=== PATIENT | male | born 1960 | race Caucasian/White ===

== ENCOUNTER 2017-03-24 19:56 | Emergency (ER) | payer OTHER ==
[~2017-03-24] VITALS: Ht 182.9 cm; Wt 104.3 kg
[~2017-03-24 19:56] MED LIST: ACCUPRIL10 MG ORAL; ADVAIR 250-501 EACH INH; NOVOLIN 70/305 UNIT1 SUBQ
[2017-03-24 19:58] VITALS: BP 145/79
--- NOTE | 2017-03-24 20:18 | Emergency Room Report ---
History of Present Illness General Chief Complaint: Chest Pain Source: Patient Present Illness HPI 56YOM [place] after civilian called EMS On scene patient c/o SOB/chest pain for 3 days States he has "had PNA a couple of times." Denies fever/chills, cough has obvious ascites of abdomen, states he has liver failure from Hep C Never had [facility] Denies recent increase in abd size/girth, abd pain, nausea/vomiting, diarrhea, fever/chills Allergies: Coded Allergies: CODEINE (Unverified Allergy, Intermediate, rash, 09/27/12) Patient History Past Medical History: other - see HPI Past Surgical History: none Pertinent Family History: none Social History: Denies: smoking, alcohol use, drug use Immunizations: UTD Reviewed Nursing Documentation: PMH: Agreed, PSxH: Agreed Nursing Documentation-PMH Hx Cardiac Problems: Yes - chf Hx Hypertension: Yes Hx COPD: Yes Hx Diabetes: Yes Hx Gastrointestinal Problems: Yes - ENS STAGE LIVER DISEASE Review of Systems All Other Systems: negative except mentioned in HPI Physical Exam Vital Signs Date Time Temp Pulse Resp B/P (MAP) Pulse Ox O2 Delivery O2 Flow Rate FiO2 03/24/17 19:49 98.8 94 18 141/78 97 Room Air Medical Decision Making Diagnostic Impression: Primary Impression: Ascites Qualified Codes: R18.8 - Other ascites Additional Impression: Chest pain Qualified Codes: R07.9 - Chest pain, unspecified ER Course Ascites, chronic umbilical reducible hernia. Non-tender abdomen. No fever/ chills. Unlikely SBP. No leuks. Chest pain/SOB ECG with NSR, no ischemia. Troponin 0. CXR negative for PNA, CHF patient homeless, multiple belongings with him Sleeping in stretcher entire ED stay Asking for food No acute distress ?malingering DC EKG Diagnostic Results Rate: normal Rhythm: NSR ST Segments: no acute changes ASA given to the pt in ED: No Rhythm Strip Diag. Results EP Interpretation: yes Rate: 92 Rhythm: NSR Last Vital Signs Date Time Temp Pulse Resp B/P (MAP) Pulse Ox O2 Delivery O2 Flow Rate FiO2 03/24/17 19:49 98.8 94 18 141/78 97 Room Air Status: improved Disposition: HOME, SELF-CARE JONAS MACIAS M.D. Mar 24, 2017 20:18
[2017-03-24 20:32] LABS: MEAN CORPUSCULAR HEMOGLOBIN 33.9 PG (27.0-31.0); MEAN CORPUSCULAR HGB CONC 34.7 G/DL (32.0-36.0); MEAN CORPUSCULAR VOLUME 98 FL (80-99); MEAN PLATELET VOLUME 6.7 FL (6.5-10.1); PLATELET COUNT 87 K/UL (150-450); RED BLOOD COUNT 3.04 M/UL (4.70-6.10); RED CELL DISTRIBUTION WIDTH 14.2 % (11.6-14.8); WHITE BLOOD COUNT 6.1 K/UL (4.8-10.8)
[2017-03-24 20:51] LABS: EOSINOPHILS % (AUTO) 2.4 % (0.0-3.0); LYMPHOCYTES % (AUTO) 17.1 % (20.0-45.0); MONOCYTES % (AUTO) 8.5 % (1.0-10.0); NEUTROPHILS % (AUTO) 70.5 % (45.0-75.0)
[2017-03-24 20:52] LABS: BASOPHILS % (AUTO) 1.6 % (0.0-2.0)
[2017-03-24 21:11] LABS: TROPONIN I < 0.30 ng/mL (<=0.30)
[2017-03-24 21:12] LABS: ALANINE AMINOTRANSFERASE 18 U/L (3-41); ALBUMIN/GLOBULIN RATIO 0.5 (1.0-2.7); ANION GAP 8 (5-15); ASPARTATE AMINO TRANSFERASE 34 U/L (5-40); CARBON DIOXIDE 26 mEQ/L (20-30); CHLORIDE 104 mEQ/L (98-107); CREATININE 0.8 mg/dL (0.7-1.2); GLOMERULAR FILTRATION RATE > 60 mL/min (>60); HEMOLYSIS 3; LIPASE 28 U/L (< 60); POTASSIUM 3.8 mEQ/L (3.4-4.9); SODIUM 138 mEQ/L (135-145); TOTAL PROTEIN 6.7 g/dL (6.6-8.7)
[2017-03-24 21:22] LABS: CKMB 2.7 ng/mL (< 6.7)
[2017-03-24 21:33] LABS: BILIRUBIN,DIRECT 0.7 mg/dL (0.1-0.3)
[2017-03-24 22:04] LABS: APPEARANCE,URINE CLEAR; KETONES,URINE NEGATIVE (NEGATIVE); LEUKOCYTE ESTERASE ,URINE NEGATIVE (NEGATIVE); NITRITE,URINE NEGATIVE (NEGATIVE); PH,URINE 7 (4.5-8.0); PROTEIN,URINE 2+ (NEGATIVE); UROBILINOGEN,URINE 8 MG/DL (0.0-1.0)
[2017-03-24 22:18] VITALS: BP 139/83
[2017-03-24 22:18] LABS: SQUAMOUS EPITHELIAL CELL,UR OCCASIONAL /LPF (NONE/OCC); WBC,URINE 0 /HPF (0 - 0)
[2017-03-24 22:45] VITALS: BP 139/83
--- NOTE | 2017-03-25 09:04 | Diagnostic Imaging Report ---
Indication: Chest pain Technique: XRAY CHEST 1 V Comparison:10/16/2011 Findings: The heart is upper limits of normal size. Prominent interstitial markings are noted. Pulmonary vascularity is also slightly prominent. There is bronchial wall thickening. No alveolar infiltrates. No pleural fluid. Impression: Mild prominence of interstitial markings. Is also bronchial wall thickening. Possibility of fluid overload or mild congestive heart failure should be considered.
--- NOTE | 2017-03-27 18:44 | Cardiology Report ---
APPROVED REPORT EKG Measurement Heart [id number] Sinus rhythm with premature supraventricular complexes Rightward axis Cannot rule out Anterior infarct, age undetermined T wave abnormality, consider inferior ischemia Abnormal ECG
== END 2017-03-24 22:45 | disposition home or self-care (01) ==
LOC: EDBD 19:56 → EMR 20:30
DX: R07.9 Chest pain, unspecified (principal); R06.02 Shortness of breath; I50.9 Heart failure, unspecified; I10 Essential (primary) hypertension; E11.9 Type 2 diabetes mellitus without complications; J44.9 Chronic obstructive pulmonary disease, unspecified; K72.90 Hepatic failure, unspecified without coma; Z88.6 Allergy status to analgesic agent
CPT/HCPCS: 36415; 71010; 80053; 81003; 82248; 82550; 82553; 83690; 84484; 85025; 93005; 99283

== ENCOUNTER 2017-04-10 15:57 | Emergency (ER) | payer OTHER ==
[~2017-04-10] VITALS: Ht 182.9 cm; Wt 7.3 kg
--- NOTE | 2017-04-10 17:07 | Emergency Room Report ---
History of Present Illness General Chief Complaint: Nausea Source: Patient Present Illness HPI 56YOM [address] with nausea. Feels better after 1x episode of vomiting Denies abd pain, chest pain, SOB, fevers Denies worsening size of ascites Homeless Was seen here 2 weeks prior as well - labs were done. No leuks. Stable H&H. Elevated LFTs likely d/t known cirrhosis patient states continues to drink, including today Otherwise not contributing much to HPI, seems more interested in sleeping Allergies: Coded Allergies: CODEINE (Unverified Allergy, Intermediate, rash, 09/27/12) Patient History Past Medical History: other - Ascites Past Surgical History: none Pertinent Family History: none Social History: Reports: alcohol use, Denies: smoking, drug use Immunizations: UTD Reviewed Nursing Documentation: PMH: Agreed, PSxH: Agreed Nursing Documentation-PMH Hx Cardiac Problems: Yes - chf Hx Hypertension: Yes Hx COPD: Yes Hx Diabetes: Yes Hx Gastrointestinal Problems: Yes - ENS STAGE LIVER DISEASE Review of Systems All Other Systems: negative except mentioned in HPI Physical Exam Vital Signs Date Time Temp Pulse Resp B/P (MAP) Pulse Ox O2 Delivery O2 Flow Rate FiO2 04/10/17 15:49 97.2 82 16 152/ 98 Sp02 EP Interpretation: reviewed, normal General Appearance: normal inspection, well appearing, no apparent distress, alert, GCS 15, non-toxic, other - +AOB, disheveled Head: normocephalic, atraumatic Eyes: bilateral eye PERRL, bilateral eye EOMI ENT: normal ENT inspection, hearing grossly normal, normal voice Neck: normal inspection, full range of motion, supple, no bony tend Respiratory: normal inspection, lungs clear, normal breath sounds, no respiratory distress, no retraction, no wheezing Cardiovascular #1: regular rate, rhythm, no edema Gastrointestinal: normal inspection, normal bowel sounds, non tender, soft, no guarding, no hernia, other - Enlarged abdomen/ascites. Non-distended. Non- tender. Reducible umbilical hernia Genitourinary: no CVA tenderness Musculoskeletal: normal inspection, back normal, normal range of motion, Yusef' s Sign negative Neurologic: normal inspection, alert, oriented x3, responsive, program director/air personality III-XII nml as tested, motor strength/tone normal, speech normal Psychiatric: normal inspection, judgement/insight normal, mood/affect normal Skin: normal inspection, normal color, no rash Lymphatic: normal inspection Medical Decision Making Diagnostic Impression: Primary Impression: Umbilical hernia without obstruction or gangrene Additional Impressions: Ascites Qualified Codes: K70.31 - Alcoholic cirrhosis of liver with ascites Nausea ER Course VSS. Afebrile Homeless Stable ascites. Reducible hernia. Was given PO zofran for nausea Tolerating PO in ED Sleeping throughout ED stay DC Last Vital Signs Date Time Temp Pulse Resp B/P (MAP) Pulse Ox O2 Delivery O2 Flow Rate FiO2 04/10/17 15:49 97.2 82 16 152/ 98 Status: improved Disposition: HOME, SELF-CARE JONAS MACIAS M.D. Apr 10, 2017 17:07
[2017-04-10 17:50] VITALS: BP 155/88
== END 2017-04-10 17:57 | disposition home or self-care (01) ==
LOC: EDBD 15:57 → EMR 17:49
DX: K42.9 Umbilical hernia without obstruction or gangrene (principal); R18.8 Other ascites; R11.0 Nausea; E11.9 Type 2 diabetes mellitus without complications; J44.9 Chronic obstructive pulmonary disease, unspecified; Z88.6 Allergy status to analgesic agent
CPT/HCPCS: 99283

== ENCOUNTER 2017-09-26 16:20 | Emergency (ER) | payer OTHER ==
[~2017-09-26] VITALS: Ht 182.9 cm; Wt 113.4 kg
[2017-09-26 16:24] VITALS: BP 136/86
[2017-09-26] MEDS ORDERED: Ketorolac 30mg Inj IM ONE (17:00)
[2017-09-26] MEDS ORDERED: PROMETHAZI6.25 MG/1 ORAL (17:45)
[2017-09-26] MEDS ORDERED: PREDNISONE20 MG ORAL (17:45)
[2017-09-26] MEDS ORDERED: AMOXICILLIN500 MG ORAL (17:45)
[2017-09-26] MEDS ORDERED: ALBUTEROL SULF8.5 GM INH (17:45)
[2017-09-26 17:55] VITALS: BP 135/80
--- NOTE | 2017-09-26 20:51 | Emergency Room Report ---
History of Present Illness General Chief Complaint: General Complaint Source: Patient, EMS Present Illness HPI 56-year-old male presents ED for evaluation. Patient brought in by EMS complaining of cough with bloody sputum 1 week. Denies chest pain or shortness of breath. Upon arrival patient screaming and yelling. States that he does not want to be brought to [place]. Patient also complaining of abdominal pain. States he has history of hernia. Denies nausea or vomiting. States he is hungry and wants to eat. No other aggravating or relieving factors. Denies any other associated symptoms Allergies: Coded Allergies: CODEINE (Unverified Allergy, Intermediate, rash, 09/27/12) Patient History Past Medical History: DM, HTN, CHF, COPD Pertinent Family History: none Social History: Denies: smoking, alcohol use, drug use Immunizations: UTD Reviewed Nursing Documentation: PMH: Agreed, PSxH: Agreed Nursing Documentation-PMH Hx Cardiac Problems: Yes - chf Hx Hypertension: Yes Hx COPD: Yes Hx Diabetes: Yes Hx Gastrointestinal Problems: Yes - ENS STAGE LIVER DISEASE Review of Systems All Other Systems: negative except mentioned in HPI Physical Exam Vital Signs Date Time Temp Pulse Resp B/P (MAP) Pulse Ox O2 Delivery O2 Flow Rate FiO2 09/26/17 16:14 98.4 88 18 136/86 99 Room Air 98.4 Sp02 EP Interpretation: reviewed, normal General Appearance: no apparent distress, alert, GCS 15, non-toxic Head: normocephalic, atraumatic Eyes: bilateral eye normal inspection, bilateral eye PERRL ENT: hearing grossly normal, normal pharynx, no angioedema, normal voice Neck: full range of motion, supple/symm/no masses Respiratory: chest non-tender, lungs clear, normal breath sounds, speaking full sentences Cardiovascular #1: regular rate, rhythm, no edema Cardiovascular #2: 2+ carotid (R), 2+ carotid (L), 2+ radial (R), 2+ radial (L) , 2+ dorsalis pedis (R), 2+ dorsalis pedis (L) Gastrointestinal: normal bowel sounds, non tender, soft, non-distended, no guarding, no rebound Rectal: deferred Genitourinary: normal inspection, no CVA tenderness Musculoskeletal: back normal, gait/station normal, normal range of motion, non- tender Neurologic: alert, oriented x3, responsive, motor strength/tone normal, sensory intact, speech normal Psychiatric: judgement/insight normal, memory normal, mood/affect normal, no suicidal/homicidal ideation Reflexes: 3+ bicep (R), 3+ bicep (L), 3+ tricep (R), 3+ tricep (L), 3+ knee (R) , 3+ knee (L) Skin: normal color, no rash, warm/dry, well hydrated Lymphatic: no adenopathy Medical Decision Making Diagnostic Impression: Primary Impression: Pneumonia Qualified Codes: J18.1 - Lobar pneumonia, unspecified organism ER Course Hospital Course 56-year-old male presents ED complaining of cough with blood-tinged sputum Differential diagnoses include: URI, bronchitis, asthma/COPD, pneumonia Clinical course Patient placed on stretcher. After initial history, physical exam reveals an elderly male in no acute distress. Bilateral TM unremarkable. No pharyngeal erythema. No tonsillar exudates. No lymphadenopathy. lungs clear. I ordered CXR Chest x-ray shows increased conslidation in RLL. ? PNA Patient has stable vitals. Screaming and cursing and nursing staff. Asking for food. Asking for pain meds. I offered him Toradol which he accepted but became very upset later. Asking for stronger pain meds Patient states of him not to provide him with stronger pain meds he is going to leave. Patient is stable for discharge. I will prescribe antibiotics Diagnosis - pneumonia Stable and discharged home with prescriptions for amoxicillin. Patient escorted by security. Instructed to followup with PMD. Return to ED if symptoms recur or worsen Chest X-Ray Diagnostic Results Chest X-Ray Diagnostic Results : Chest X-Ray Ordered: Yes # of Views/Limited/Complete: 1 View Indication: Shortness of Breath EP Interpretation: Yes Interpretation: no pneumothorax, other - increased consolidation RLL Impression: Other - chf vs pnuemonia Electronically Signed by: Electronically signed by Matthew Escobar MD Last Vital Signs Date Time Temp Pulse Resp B/P (MAP) Pulse Ox O2 Delivery O2 Flow Rate FiO2 09/26/17 17:55 98.2 84 19 135/80 98 Room Air 209.1 Status: improved Disposition: HOME, SELF-CARE Condition: Stable Scripts Prednisone* (PREDNISONE*) 20 Mg Tablet 40 MG ORAL DAILY, #10 TAB Prov: MATTHEW ESCOBAR M.D. 09/26/17 Albuterol Sulfate* (ALBUTEROL SULFATE MDI*) 8.5 Gm Hfa.aer.ad 2 PUFF INH Q4H Y for cough/wheezing, #1 EA 0 Refills Prov: MATTHEW ESCOBAR M.D. 09/26/17 Promethazine Hcl (PROMETHAZINE HCL*) 6.25 Mg/5 Ml Syrup 5 ML ORAL Q6H, #120 ML 0 Refills Prov: MATTHEW ESCOBAR M.D. 09/26/17 Amoxicillin* (AMOXIL*) 500 Mg Capsule 500 MG ORAL THREE TIMES A DAY, #21 CAP Prov: MATTHEW ESCOBAR M.D. 09/26/17 Referrals: Jesusita TAM,REFERRING (PCP) Patient Instructions: Community-Acquired Pneumonia, Adult, [id number] MATTHEW ESCOBAR M.D. Sep 26, 2017 20:51
--- NOTE | 2017-09-27 09:56 | Diagnostic Imaging Report ---
Indication: Cough Technique: One view of the chest Comparison: 03/24/2017 Findings: The heart is enlarged. There is air or pulmonary venous congestion. There is an ovoid opacity in the right midlung measuring 3 cm diameter which is not evident previously, better appreciated on image 2 of 2. There is patchy infiltrate in the right lung base. The pleural spaces are grossly clear. Impression: Right basilar infiltrate. This agrees with the impression of the ED physician reported in the electronic medical record Right midlung ovoid 3 cm opacity. Most likely some focal patchy infiltrate, but this should be followed to resolution to exclude underlying mass lesion. This was discussed by phone with Dr. Tran at the time of interpretation Mild generalized pulmonary venous congestion Cardiomegaly
== END 2017-09-26 17:55 | disposition home or self-care (01) ==
LOC: EDBD 16:20 → EMR 17:45
DX: J18.1 Lobar pneumonia, unspecified organism (principal); J44.9 Chronic obstructive pulmonary disease, unspecified; E11.9 Type 2 diabetes mellitus without complications; I11.0 Hypertensive heart disease with heart failure; I50.9 Heart failure, unspecified; K72.90 Hepatic failure, unspecified without coma
CPT/HCPCS: 71045; 96372; 99284; J1885